=== PATIENT | female | born 1995 | race African-American/Black ===

== ENCOUNTER 2020-02-15 01:18 | Emergency (ER) | payer MEDICAID ==
[~2020-02-15] VITALS: Ht 165.1 cm; Wt 63.5 kg
[2020-02-15 01:23] VITALS: BP 156/89
--- NOTE | 2020-02-15 01:33 | NUR ---
PT AMBULATED TO CHAIR C
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
--- NOTE | 2020-02-15 01:35 | NUR ---
EXAMINING PT IN CHAIR
[2020-02-15] MEDS ORDERED: BACITRACIN OINT 500 UNITS/GM PKT TP ONE (01:40)
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
[2020-02-15 01:47] VITALS: BP 156/89
--- NOTE | 2020-02-15 01:48 | NUR ---
Patient discharged with v/s stable. Written and verbal after care instructions given and explained. Patient alert, oriented and verbalized understanding of instructions. Ambulatory with steady gait. All questions addressed prior to discharge. ID band removed. Patient advised to follow up with PMD. Rx of NEOSPORIN given. Patient educated on indication of medication including possible reaction and side effects. Opportunity to ask questions provided and answered.
== END 2020-02-15 01:47 | disposition home or self-care (01) ==
LOC: MED 01:18
DX: M79.605 Pain in left leg (principal); F41.9 Anxiety disorder, unspecified; F43.10 Post-traumatic stress disorder, unspecified; F20.9 Schizophrenia, unspecified; Z94.5 Skin transplant status
CPT/HCPCS: 99282

== ENCOUNTER 2020-02-28 09:52 | Emergency (ER) | payer MEDICAID ==
[~2020-02-28] VITALS: Ht 175.3 cm; Wt 65.8 kg
[2020-02-28 09:54] VITALS: BP 117/92
--- NOTE | 2020-02-28 09:54 | NUR ---
DR. KAN EVALUATING PT AT BEDSIDE.
[2020-02-28] MEDS ORDERED: KETOROLAC 30 MG/ML VIAL IM ONE ×2 (09:55→10:35)
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
--- NOTE | 2020-02-28 10:21 | NUR ---
CALLED [facility], TECH STATES SHE WILL BE HERE SOON
--- NOTE | 2020-02-28 10:27 | NUR ---
[facility] TECH AT BEDSIDE
--- NOTE | 2020-02-28 10:30 | NUR ---
PT REFUSED [facility] AT THIS TIME.
[2020-02-28 10:50] VITALS: BP 113/85
== END 2020-02-28 10:50 | disposition home or self-care (01) ==
LOC: MED 09:52
DX: M79.662 Pain in left lower leg (principal); F19.90 Other psychoactive substance use, unspecified, uncomplicated; F14.90 Cocaine use, unspecified, uncomplicated; F12.90 Cannabis use, unspecified, uncomplicated; F11.90 Opioid use, unspecified, uncomplicated; F15.10 Other stimulant abuse, uncomplicated
CPT/HCPCS: 96372; 99284; J1885

== ENCOUNTER 2020-04-13 04:04 | Emergency (ER) | payer MEDICAID ==
--- NOTE | 2020-04-13 04:06 | NUR ---
JIM CARR. TAKEN TO CHAIR A
--- NOTE | 2020-04-13 04:08 | NUR ---
Dr. Goddard examining patient.
--- NOTE | 2020-04-13 04:14 | NUR ---
PT COMBATIVE AND ARGUMENTATIVE, NOT WILLING TO LEAVE AFTER BEING DISCHARGED. SECURITY CALLED AND PT STILL WOULD NOT LEAVE. [facility] CALLED.
== END 2020-04-13 04:14 | disposition home or self-care (01) ==
LOC: MED 04:04
DX: F14.921 Cocaine use, unspecified with intoxication delirium (principal); F05 Delirium due to known physiological condition; G92 Toxic encephalopathy; Z53.21 Procedure and treatment not carried out due to patient leaving prior to being seen by health care provider

== ENCOUNTER 2021-09-27 13:20 | Emergency (ER) | payer MEDICAID ==
[~2021-09-27] VITALS: Ht 170.2 cm; Wt 67.6 kg
[2021-09-27 13:29] VITALS: BP 127/85
--- NOTE | 2021-09-27 13:33 | NUR ---
PT TAKEN TO C BY INDIGO HOLLIS.
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
--- NOTE | 2021-09-27 14:15 | NUR ---
Indigo hagan in [facility] - 09/27/21 at 1420 by [email or web address] PATIENT STATES IS UNABLE TO PROVIDE URINE SAMPLE AT THIS TIME.
--- NOTE | 2021-09-27 14:19 | NUR ---
PT STATES SHE IS UNABLE TO PROVIDE UA SAMPLE AT THIS TIME.
[2021-09-27] MEDS ORDERED: CEPH-588 PO (15:30)
[2021-09-27 15:46] VITALS: BP 124/79
--- NOTE | 2021-09-27 15:47 | NUR ---
Patient discharged with v/s stable. Written and verbal after care instructions given FOR 3RD TRIMESTER AND UTI and explained. Patient alert, oriented and verbalized understanding of instructions. Police with steady gait. All questions addressed prior to discharge. ID band removed. Patient advised to follow up with PMD. Rx of KEFLEX given. Patient educated on indication of medication including possible reaction and side effects. Opportunity to ask questions provided and answered.
== END 2021-09-27 15:47 | disposition home or self-care (01) ==
LOC: MED 13:20
DX: O23.41 Unspecified infection of urinary tract in pregnancy, first trimester (principal); Z02.89 Encounter for other administrative examinations; O99.331 Smoking (tobacco) complicating pregnancy, first trimester; Z3A.09 9 weeks gestation of pregnancy; Z79.2 Long term (current) use of antibiotics
CPT/HCPCS: 81002; 81025; 99284